=== PATIENT | male | born 1940 | race Caucasian/White ===

== ENCOUNTER → 2020-06-30 | Outpatient (CLI) | payer MEDICARE | END | disposition home or self-care (01) | LOC: COVID19 11:32 | PROVIDERS: ATTEND Internal Medicine | DX: U07.1 COVID-19 (principal) ==

== ENCOUNTER → 2023-11-16 | Outpatient (CLI) | payer MEDICARE ==
[~2023-11-16] MED LIST: ASPIRIN ADULT L81 M2 PO; ATORVASTATIN CA40 M1 PO; LOSARTAN POTASS25 M1 PO; METOPROLOL SUCC25 M2 PO; MUCINEX ER600 MG PO; PREDNISONE10 MG PO; TAMIFLU 75MG CA75 MG PO; ZITHROMAX250 MG PO
== END | disposition home or self-care (01) ==
LOC: RESCLI 15:39
PROVIDERS: ATTEND Internal Medicine
DX: E03.9 Hypothyroidism, unspecified (principal); I48.91 Unspecified atrial fibrillation; J44.9 Chronic obstructive pulmonary disease, unspecified; Z98.890 Other specified postprocedural states; Z88.8 Allergy status to other drugs, medicaments and biological substances; Z79.01 Long term (current) use of anticoagulants; Z79.899 Other long term (current) drug therapy

== ENCOUNTER 2024-02-26 09:26 | Inpatient (IN) | payer MEDICARE ==
[~2024-02-26] VITALS: Ht 180.3 cm; Wt 86.2 kg
[2024-02-26] VITALS (11 sets, daily range): BP systolic 104–136; BP diastolic 69–90
[~2024-02-26 09:26] MED LIST changes: +DILTIAZEM 24HR180 MG PO; +ELIQUIS5 M1 PO; +FUROSEMIDE20 M1 PO; +HYDROCODONE-AC1 EAC1 PO; +LEVOTHYROXINE50 MCG PO; +TRELEGY ELLIPT1 EAC1 INH; +VITAMIN D350 MCG PO
[2024-02-26] MEDS ORDERED: MORPHINE Sulfate 2 MG/ML SYR IV ONE (10:00)
[2024-02-26] MEDS ORDERED: Ondansetron Hydrochloride 4 MG/2 ML VIAL IV ONE (10:00)
[2024-02-26 10:24] LABS: BASO % 0.4 % (0.0-1.0); EOS % 0.4 % (1.0-4.0); HEMATOCRIT 36.4 % (42.0-52.0); LYMPH # 0.9 10*3/uL (1.3-4.4); LYMPH % 11.6 % (27.0-41.0); MEAN CELL VOLUME 93.6 fl (80.0-94.0); MEAN CORPUSCULAR HGB 29.6 pg (27.0-31.0); MEAN CORPUSCULAR HGB CONC 31.6 g/dl (33.0-37.0); MONO # 0.5 10*3/uL (0.1-1.0); MONO % 6.8 % (3.0-9.0); NEUT # 6.3 10*3/uL (2.3-7.9); NEUT % 80.4 % (47.0-73.0); PLATELET COUNT AUTOMATED 279 10*3/uL (130-400); RED BLOOD COUNT 3.89 10*6/uL (4.50-5.90); RED CELL DISTRI WIDTH 16.5 % (0-14.5); WHITE BLOOD COUNT 7.8 10*3/uL (4.8-10.8)
[2024-02-26 10:35] LABS: ACT PARTIAL THROMBO TIME 34.2 SECONDS (20.0-32.1)
[2024-02-26] MEDS ORDERED: Metoprolol Tartrate 5 MG/5 ML VIAL IV ONE (10:35)
[2024-02-26 10:39] LABS: POTASSIUM 3.9 mmol/L (3.4-5.1)
[2024-02-26] MEDS ORDERED: Magnesium Hydroxide 30 ML UDC PO PRN (13:15)
[2024-02-26] MEDS ORDERED: MORPHINE Sulfate 2 MG/ML SYR IV PRN (13:15)
[2024-02-26] MEDS ORDERED: BISACODYL 5 MG TAB PO PRN (13:15)
[2024-02-26] MEDS ORDERED: Lactated Ringer's Solution 1,000 ML IV ONE ×3 (13:25→14:45)
[2024-02-26] MEDS ORDERED: ACETAMINOPHEN 100 ML IV ONE (13:34)
[2024-02-26] MEDS ORDERED: Ropivacaine Hydrochloride 5 MG/ML 20 ML AMP IJ ONE (13:34)
[2024-02-26] MEDS ORDERED: TRANEXAMIC ACID IN NACL,ISO-OS 100 ML IV ONE ×2 (13:38→14:15)
[2024-02-26] MEDS ORDERED: ceFAZolin sodium/sodium chlor 20 ML IV ONE ×2 (13:39→14:15)
[2024-02-26] MEDS ORDERED: Bupivacaine Hydrochloride/Ep2 30 ML VIAL ONE (14:45)
[2024-02-26] MEDS ORDERED: Dexamethasone Sodium Phospha 4 MG/ML VIAL IV ONE (17:11)
[2024-02-26] MEDS ORDERED: SEVOFLURANE 250 ML BOT INH ONE (17:11)
[2024-02-26] MEDS ORDERED: PROPOFOL 200 MG/20 ML VIAL IV ONE (17:11)
[2024-02-26] MEDS ORDERED: SUGAMMADEX SODIUM 200 MG/2 ML VIAL IV ONE (17:11)
[2024-02-26] MEDS ORDERED: fentaNYL CITRATE 100 MCG/2 ML VIAL IV ONE (17:11)
[2024-02-26] MEDS ORDERED: Phenylephrine Hydrochloride 1 MG/10 ML SYRINGE IV ONE (17:11)
[2024-02-26] MEDS ORDERED: ROCURONIUM BROMIDE 50 MG/5 ML SYRINGE IV ONE (17:11)
[2024-02-26] MEDS ORDERED: Midazolam Hydrochloride 2 MG/2 ML VIAL IV ONE (17:11)
[2024-02-26] MEDS ORDERED: Acetaminophen/Hydrocodone ES 7.5/325 tablet PO ONE (17:17)
[2024-02-26] MEDS ORDERED: Acetaminophen/Hydrocodone ES 7.5/325 tablet PO PRN (18:00)
[2024-02-26] MEDS ORDERED: SODIUM CHLORIDE 0.9% 1,000 ML IV ONE ×2 (18:25→18:44)
[2024-02-26] MEDS ORDERED: ceFAZolin sodium/sodium chlor 10 ML IV SCH (22:00)
[2024-02-27] VITALS: BP 99/61
[2024-02-27 06:10] LABS: HEMATOCRIT 34.6 % (42.0-52.0); MEAN CORPUSCULAR HGB 29.3 pg (27.0-31.0); MEAN CORPUSCULAR HGB CONC 31.2 g/dl (33.0-37.0); MEAN PLATELET VOLUME 9.6 fl (9.6-12.3); PLATELET COUNT AUTOMATED 254 10*3/uL (130-400); RED BLOOD COUNT 3.68 10*6/uL (4.50-5.90); RED CELL DISTRI WIDTH 16.3 % (0-14.5); WHITE BLOOD COUNT 9.6 10*3/uL (4.8-10.8)
[2024-02-27 06:13] LABS: MANUAL DIFF REFLEX YES
[2024-02-27 06:23] LABS: TOTAL PROTEIN 6.3 gm/dL (6.0-8.0)
[2024-02-27 07:00] LABS: OVALOCYTES FEW; POLYCHROMASIA SLIGHT; TARGET CELLS FEW; TOTAL CELLS COUNTED 100 #CELLS
[2024-02-27 07:01] LABS: PLATELET SUFFICIENCY NORMAL (NORMAL)
[2024-02-27 08:00] VITALS: BP 118/75
[2024-02-27] MEDS ORDERED: DILTIAZEM CD 180 MG CAP PO SCH (10:00)
[2024-02-27] MEDS ORDERED: Cholecalciferol 2,000 UNIT TABLET (50 MCG) PO SCH (10:00)
[2024-02-27 12:00] VITALS: BP 93/58
[2024-02-27 16:00] VITALS: BP 98/54
[2024-02-27 20:00] VITALS: BP 111/59
[2024-02-27] MEDS ORDERED: APIXABAN 5 MG TAB PO SCH (22:00)
[2024-02-27 23:00] VITALS: BP 113/66
[2024-02-28] MEDS ORDERED: Levothyroxine Sodium 50 MCG TAB PO SCH (06:00)
[2024-02-28 06:33] LABS: LYMPH # 0.6 10*3/uL (1.3-4.4); LYMPH % 4.7 % (27.0-41.0); MEAN CELL VOLUME 92.2 fl (80.0-94.0); MEAN CORPUSCULAR HGB 29.7 pg (27.0-31.0); MEAN CORPUSCULAR HGB CONC 32.2 g/dl (33.0-37.0); MEAN PLATELET VOLUME 9.2 fl (9.6-12.3); MONO # 1.1 10*3/uL (0.1-1.0); MONO % 9.3 % (3.0-9.0); NEUT % 85.4 % (47.0-73.0); PLATELET COUNT AUTOMATED 233 10*3/uL (130-400); RED BLOOD COUNT 3.47 10*6/uL (4.50-5.90); RED CELL DISTRI WIDTH 16.6 % (0-14.5); WHITE BLOOD COUNT 11.7 10*3/uL (4.8-10.8)
[2024-02-28 08:00] VITALS: BP 106/85
[2024-02-28] MEDS ORDERED: SODIUM CHLORIDE 0.9% 1,000 ML IV ONE (10:25)
[2024-02-28 12:00] VITALS: BP 95/58
[2024-02-28 16:00] VITALS: BP 102/72
[2024-02-28 20:00] VITALS: BP 107/72
[2024-02-29] VITALS: BP 120/60
[2024-02-29 04:31] LABS: BASO % 0.1 % (0.0-1.0); HEMATOCRIT 32.3 % (42.0-52.0); LYMPH # 0.8 10*3/uL (1.3-4.4); LYMPH % 9.5 % (27.0-41.0); MEAN CELL VOLUME 93.6 fl (80.0-94.0); MEAN CORPUSCULAR HGB 30.4 pg (27.0-31.0); MEAN CORPUSCULAR HGB CONC 32.5 g/dl (33.0-37.0); MEAN PLATELET VOLUME 9.1 fl (9.6-12.3); MONO # 0.9 10*3/uL (0.1-1.0); MONO % 10.8 % (3.0-9.0); NEUT # 6.6 10*3/uL (2.3-7.9); NEUT % 78.8 % (47.0-73.0); PLATELET COUNT AUTOMATED 209 10*3/uL (130-400); RED BLOOD COUNT 3.45 10*6/uL (4.50-5.90); RED CELL DISTRI WIDTH 16.8 % (0-14.5); WHITE BLOOD COUNT 8.4 10*3/uL (4.8-10.8)
[2024-02-29 08:00] VITALS: BP 120/79
[2024-02-29 12:00] VITALS: BP 112/66
[2024-02-29] MEDS ORDERED: Ondansetron Hydrochloride 4 MG TAB PO PRN (15:50)
[2024-02-29 16:00] VITALS: BP 106/70
[2024-02-29] MEDS ORDERED: Polyethylene Glycol 3350 17 GM PACKET PO SCH (18:00)
[2024-02-29 20:00] VITALS: BP 101/61
[2024-03-01] VITALS: BP 104/65
[2024-03-01 06:45] LABS: BASO % 0.1 % (0.0-1.0); EOS % 0.3 % (1.0-4.0); HEMATOCRIT 31.6 % (42.0-52.0); LYMPH % 13.9 % (27.0-41.0); MEAN CORPUSCULAR HGB 30.1 pg (27.0-31.0); MEAN PLATELET VOLUME 9.6 fl (9.6-12.3); MONO # 0.8 10*3/uL (0.1-1.0); MONO % 11.3 % (3.0-9.0); NEUT # 5.1 10*3/uL (2.3-7.9); NEUT % 74.1 % (47.0-73.0); PLATELET COUNT AUTOMATED 207 10*3/uL (130-400); POTASSIUM 5.1 mmol/L (3.4-5.1); RED BLOOD COUNT 3.36 10*6/uL (4.50-5.90); RED CELL DISTRI WIDTH 16.6 % (0-14.5); WHITE BLOOD COUNT 6.9 10*3/uL (4.8-10.8)
[2024-03-01 08:00] VITALS: BP 113/69
[2024-03-01] MEDS ORDERED: APIXABAN 5 MG TAB PO SCH (10:00)
[2024-03-01] MEDS ORDERED: HYDROCODONE-AC1 EAC2 PO (11:41)
[2024-03-01 12:00] VITALS: BP 108/65
== END 2024-03-01 13:16 | disposition home or self-care (01) | DRG 469 ==
LOC: ED 09:26 → 4E 11:40 → EDHOLD 11:40 → 4E 15:09
PROVIDERS: Emergency Medicine; Orthopaedic Surgery; Student in an Organized Health Care Education/Training Program; ADMIT Student in an Organized Health Care Education/Training Program; ATTEND Student in an Organized Health Care Education/Training Program
PROC: 0SRS0JZ Replacement of Left Hip Joint, Femoral Surface with Synthetic Substitute, Open Approach (ICD-10-PCS; principal; 2024-02-26)
PROC: 3E0T3BZ Introduction of Anesthetic Agent into Peripheral Nerves and Plexi, Percutaneous Approach (ICD-10-PCS; 2024-02-26)
PROC: 0SPB04Z Removal of Internal Fixation Device from Left Hip Joint, Open Approach (ICD-10-PCS; 2024-02-26)
DX: T84.84XA Pain due to internal orthopedic prosthetic devices, implants and grafts, initial encounter (principal); N17.0 Acute kidney failure with tubular necrosis; E87.1 Hypo-osmolality and hyponatremia; I48.91 Unspecified atrial fibrillation; N18.31 Chronic kidney disease, stage 3a; E80.6 Other disorders of bilirubin metabolism; D64.9 Anemia, unspecified; R73.9 Hyperglycemia, unspecified; I12.9 Hypertensive chronic kidney disease with stage 1 through stage 4 chronic kidney disease, or unspecified chronic kidney disease; J44.9 Chronic obstructive pulmonary disease, unspecified; R74.8 Abnormal levels of other serum enzymes; D72.9 Disorder of white blood cells, unspecified; E03.9 Hypothyroidism, unspecified; S72.03 Midcervical fracture of femur; Z88.8 Allergy status to other drugs, medicaments and biological substances; W18.30XS Fall on same level, unspecified, sequela; Z87.891 Personal history of nicotine dependence; Z82.49 Family history of ischemic heart disease and other diseases of the circulatory system; Z79.899 Other long term (current) drug therapy; Y83.8 Other surgical procedures as the cause of abnormal reaction of the patient, or of later complication, without mention of misadventure at the time of the procedure; Y92.89 Other specified places as the place of occurrence of the external cause

== ENCOUNTER 2024-03-14 18:27 | Inpatient (IN) | payer MEDICARE ==
[2024-03-14] VITALS: BP 99/64
[~2024-03-14] VITALS: Ht 175.2 cm; Wt 79.4 kg
[~2024-03-14 18:27] MED LIST changes: +CEPHALEXIN500 M1 PO; +HYDROCODONE-AC1 EAC2 PO; +VIBRAMYCIN100 MG PO
[2024-03-14 18:46] VITALS: BP 106/58
[2024-03-14] MEDS ORDERED: SODIUM CHLORIDE 0.9% 1,000 ML IV ONE (19:15)
[2024-03-14] MEDS ORDERED: Acetaminophen/Oxycodone 5 MG/325 MG TABLET PO ONE (19:20)
[2024-03-14] MEDS ORDERED: IOHEXOL 300 MG/ML 100 ML VIAL IV ONE (19:25)
[2024-03-14] MEDS ORDERED: Piperacillin Sodium/Tazobact 50 ML IV ONE (19:45)
[2024-03-14] MEDS ORDERED: Vancomycin Hydrochloride 250 ML IV ONE (19:45)
[2024-03-14 20:00] VITALS: BP 99/64
[2024-03-14] MEDS ORDERED: MORPHINE Sulfate 2 MG/ML SYR IV PRN (20:30)
[2024-03-14] MEDS ORDERED: ACETAMINOPHEN 325 MG TAB PO PRN (20:30)
[2024-03-14] MEDS ORDERED: Ondansetron Hydrochloride 4 MG/2 ML VIAL IV PRN (20:30)
[2024-03-14] MEDS ORDERED: Acetaminophen/Oxycodone 5 MG/325 MG TABLET PO PRN (20:35)
[2024-03-14 23:32] VITALS: BP 116/76
[2024-03-15] MEDS ORDERED: hydrOXYzine hydrochloride 50 MG/ML VIAL IM ONE (01:35)
[2024-03-15 04:19] VITALS: BP 117/57
[2024-03-15 06:45] VITALS: BP 111/77
[2024-03-15 07:09] LABS: BASO % 0.4 % (0.0-1.0); EOS % 0.5 % (1.0-4.0); HEMATOCRIT 30.7 % (42.0-52.0); LYMPH # 0.7 10*3/uL (1.3-4.4); LYMPH % 13.3 % (27.0-41.0); MEAN CELL VOLUME 93.9 fl (80.0-94.0); MEAN CORPUSCULAR HGB 29.1 pg (27.0-31.0); MEAN CORPUSCULAR HGB CONC 30.9 g/dl (33.0-37.0); MEAN PLATELET VOLUME 8.7 fl (9.6-12.3); MONO # 0.7 10*3/uL (0.1-1.0); NEUT % 73.4 % (47.0-73.0); PLATELET COUNT AUTOMATED 325 10*3/uL (130-400); RED BLOOD COUNT 3.27 10*6/uL (4.50-5.90); RED CELL DISTRI WIDTH 15.3 % (0-14.5); WHITE BLOOD COUNT 5.5 10*3/uL (4.8-10.8)
[2024-03-15 07:29] LABS: POTASSIUM 3.9 mmol/L (3.4-5.1)
[2024-03-15] MEDS ORDERED: ALBUTEROL SULFATE HF INH (09:42)
[2024-03-15] MEDS ORDERED: TRELEGY ELLIPT1 EACH INH (09:45)
[2024-03-15] MEDS ORDERED: VITAMIN D350 MCG PO (09:46)
[2024-03-15] MEDS ORDERED: HYDROCODONE-AC1 EAC2 PO (09:47)
[2024-03-15] MEDS ORDERED: Piperacillin Sodium/Tazobact 2.25 GM in SODIUM CHLORIDE 0.9% 50 ML IV SCH (10:00)
[2024-03-15] MEDS ORDERED: FUROSEMIDE 40 MG/4 ML VIAL IV SCH (10:00)
[2024-03-15 10:51] VITALS: BP 102/60
[2024-03-15] MEDS ORDERED: Levothyroxine Sodium 50 MCG TAB PO SCH (11:33)
[2024-03-15] MEDS ORDERED: DILTIAZEM CD 180 MG CAP PO SCH (11:34)
[2024-03-15] MEDS ORDERED: Cholecalciferol 2,000 UNIT TABLET (50 MCG) PO SCH (11:34)
[2024-03-15] MEDS ORDERED: Albuterol Sulfate 2.5 MG/3 ML VIAL NEB SCH (11:40)
[2024-03-15] MEDS ORDERED: Lidocaine Hydrochloride 5 ML AMP ONE (11:52)
[2024-03-15] MEDS ORDERED: SODIUM BICARBONATE 4.2% 5 ML VIAL ONE (11:52)
[2024-03-15] MEDS ORDERED: Acetaminophen/Oxycodone 5 MG/325 MG TABLET PO PRN (15:55)
[2024-03-15 16:00] VITALS: BP 99/64
[2024-03-15] MEDS ORDERED: Vancomycin Hydrochloride 1,000 MG in SODIUM CHLORIDE 0.9% 250 ML IV SCH (18:00)
[2024-03-15 18:23] LABS: BF LYMPHOCYTES 2 %; BF MACROPHAGES 6 %; BF NEUTROPHILS 92 %
[2024-03-15 20:48] VITALS: BP 105/62
[2024-03-15 21:09] VITALS: BP 92/64
[2024-03-16] VITALS: BP 92/62
[2024-03-16 06:18] LABS: BASO % 0.1 % (0.0-1.0); EOS # 0.1 10*3/uL (0.0-0.4); EOS % 0.8 % (1.0-4.0); HEMATOCRIT 32.6 % (42.0-52.0); LYMPH # 1.2 10*3/uL (1.3-4.4); LYMPH % 15.9 % (27.0-41.0); MEAN CELL VOLUME 92.4 fl (80.0-94.0); MEAN CORPUSCULAR HGB 28.9 pg (27.0-31.0); MEAN CORPUSCULAR HGB CONC 31.3 g/dl (33.0-37.0); MEAN PLATELET VOLUME 9.3 fl (9.6-12.3); MONO # 1.1 10*3/uL (0.1-1.0); NEUT # 5.2 10*3/uL (2.3-7.9); NEUT % 68.8 % (47.0-73.0); PLATELET COUNT AUTOMATED 415 10*3/uL (130-400); RED BLOOD COUNT 3.53 10*6/uL (4.50-5.90); RED CELL DISTRI WIDTH 15.4 % (0-14.5); WHITE BLOOD COUNT 7.5 10*3/uL (4.8-10.8)
[2024-03-16 06:39] LABS: POTASSIUM 3.9 mmol/L (3.4-5.1)
[2024-03-16 08:00] VITALS: BP 93/64
[2024-03-16 09:45] VITALS: BP 96/60
[2024-03-16] MEDS ORDERED: Polyethylene Glycol 3350 17 GM PACKET PO SCH (10:00)
[2024-03-16] MEDS ORDERED: TRELEGY INH SCH (10:00)
[2024-03-16] MEDS ORDERED: ALBUTEROL 8 GM INHALER INH SCH (10:00)
[2024-03-16 11:20] VITALS: BP 109/89
[2024-03-16 15:14] VITALS: BP 93/58
[2024-03-16 20:00] VITALS: BP 100/58
[2024-03-17] VITALS: BP 96/66
[2024-03-17 06:04] LABS: BASO % 0.3 % (0.0-1.0); EOS % 0.7 % (1.0-4.0); HEMATOCRIT 28.1 % (42.0-52.0); LYMPH # 0.8 10*3/uL (1.3-4.4); LYMPH % 14.6 % (27.0-41.0); MEAN CORPUSCULAR HGB 28.8 pg (27.0-31.0); MEAN PLATELET VOLUME 8.8 fl (9.6-12.3); MONO # 0.7 10*3/uL (0.1-1.0); MONO % 12.4 % (3.0-9.0); NEUT # 4.1 10*3/uL (2.3-7.9); NEUT % 71.7 % (47.0-73.0); PLATELET COUNT AUTOMATED 296 10*3/uL (130-400); RED BLOOD COUNT 3.02 10*6/uL (4.50-5.90); RED CELL DISTRI WIDTH 15.2 % (0-14.5); WHITE BLOOD COUNT 5.7 10*3/uL (4.8-10.8)
[2024-03-17 07:16] LABS: POTASSIUM 4.3 mmol/L (3.4-5.1)
[2024-03-17] MEDS ORDERED: SODIUM CHLORIDE 0.9% 500 ML IV ONE (07:45)
[2024-03-17 08:00] VITALS: BP 94/59
[2024-03-17 12:00] VITALS: BP 92/52
[2024-03-17 16:00] VITALS: BP 104/70
[2024-03-17 20:00] VITALS: BP 95/62
[2024-03-17 23:09] VITALS: BP 90/63
[2024-03-17] MEDS ORDERED: DILTIAZEM HYDROCHLORIDE 30 MG PO ONE (23:15)
[2024-03-18 00:17] VITALS: BP 125/96
[2024-03-18 08:00] VITALS: BP 106/67
[2024-03-18] MEDS ORDERED: APIXABAN 5 MG TAB PO SCH (10:00)
== END 2024-03-18 11:50 | disposition home or self-care (01) | DRG 602 ==
LOC: ED 18:27 → EDHOLD 20:07 → 4E 03-15 20:07
PROVIDERS: Internal Medicine; Student in an Organized Health Care Education/Training Program; Surgery; ADMIT Internal Medicine; ATTEND Internal Medicine
PROC: 0S9B30Z Drainage of Left Hip Joint with Drainage Device, Percutaneous Approach (ICD-10-PCS; principal; 2024-03-15)
DX: L03.116 Cellulitis of left lower limb (principal); N17.0 Acute kidney failure with tubular necrosis; E87.1 Hypo-osmolality and hyponatremia; N18.32 Chronic kidney disease, stage 3b; J44.9 Chronic obstructive pulmonary disease, unspecified; I48.91 Unspecified atrial fibrillation; I95.9 Hypotension, unspecified; I12.9 Hypertensive chronic kidney disease with stage 1 through stage 4 chronic kidney disease, or unspecified chronic kidney disease; E03.9 Hypothyroidism, unspecified; D64.9 Anemia, unspecified; I25.2 Old myocardial infarction; S72.03 Midcervical fracture of femur; Z88.8 Allergy status to other drugs, medicaments and biological substances; Z87.891 Personal history of nicotine dependence; Z82.49 Family history of ischemic heart disease and other diseases of the circulatory system; X58.XXXS Exposure to other specified factors, sequela

== ENCOUNTER → 2024-03-25 | Day surgery (SDC) | payer MEDICARE ==
[~2024-03-25] VITALS: Ht 177.8 cm; Wt 84.8 kg
[2024-03-25] VITALS (7 sets, daily range): BP systolic 119–136; BP diastolic 64–92
[~2024-03-25] MED LIST changes: +ACETAMINOPHEN 100 ML IV ONE; +ALBUTEROL SULFATE HF INH; +Bupivacaine Hydrochloride/Ep 10 ML VIAL ONE; +HYDROmorphONE Hydrochloride 0.5 MG/0.5 ML SYRINGE IV PRN; +HYDROmorphONE Hydrochloride 0.5 MG/0.5 ML SYRINGE ONE; +Ketamine Hydrochloride 500 MG/10 ML VIAL IV ONE; +Lactated Ringer's Solution 1,000 ML IV ONE; +Lactated Ringer's Solution 500 ML IV ONE; +Lidocaine Hydrochloride 2% 5 ML SDV IV ONE; +PROPOFOL 200 MG/20 ML VIAL IV ONE; +ROCURONIUM BROMIDE 50 MG/5 ML SYRINGE IV ONE; +Ropivacaine Hydrochloride 5 MG/ML 20 ML AMP IJ ONE; +SEVOFLURANE 250 ML BOT INH ONE; +SUGAMMADEX SODIUM 200 MG/2 ML VIAL IV ONE; +TRELEGY ELLIPT1 EACH INH; +ceFAZolin sodium/sodium chlor 20 ML IV ONE; +fentaNYL CITRATE 100 MCG/2 ML VIAL IV ONE
[2024-03-25 13:48] LABS: BASO % 0.3 % (0.0-1.0); EOS % 0.2 % (1.0-4.0); HEMATOCRIT 30.8 % (42.0-52.0); LYMPH # 0.8 10*3/uL (1.3-4.4); LYMPH % 12.2 % (27.0-41.0); MEAN CELL VOLUME 89.3 fl (80.0-94.0); MEAN CORPUSCULAR HGB 28.1 pg (27.0-31.0); MEAN CORPUSCULAR HGB CONC 31.5 g/dl (33.0-37.0); MEAN PLATELET VOLUME 8.6 fl (9.6-12.3); MONO # 0.7 10*3/uL (0.1-1.0); MONO % 11.1 % (3.0-9.0); NEUT # 5.1 10*3/uL (2.3-7.9); NEUT % 75.7 % (47.0-73.0); PLATELET COUNT AUTOMATED 325 10*3/uL (130-400); RED BLOOD COUNT 3.45 10*6/uL (4.50-5.90); RED CELL DISTRI WIDTH 15.3 % (0-14.5); WHITE BLOOD COUNT 6.7 10*3/uL (4.8-10.8)
[2024-03-25 14:02] LABS: ACT PARTIAL THROMBO TIME 35.9 SECONDS (20.0-32.1)
[2024-03-25 14:16] LABS: POTASSIUM 4.6 mmol/L (3.4-5.1)
== END | disposition home or self-care (01) ==
LOC: SDC 13:14
PROVIDERS: Anesthesiology; ATTEND Orthopaedic Surgery
DX: L76.82 Other postprocedural complications of skin and subcutaneous tissue (principal); M79.89 Other specified soft tissue disorders; I96 Gangrene, not elsewhere classified; I11.0 Hypertensive heart disease with heart failure; I50.9 Heart failure, unspecified; J44.9 Chronic obstructive pulmonary disease, unspecified; I48.91 Unspecified atrial fibrillation; E03.9 Hypothyroidism, unspecified; Z87.891 Personal history of nicotine dependence; Z90.89 Acquired absence of other organs; Z98.890 Other specified postprocedural states; Z91.040 Latex allergy status; Z91.041 Radiographic dye allergy status; Z79.899 Other long term (current) drug therapy

== ENCOUNTER → 2024-05-16 | Outpatient (CLI) | payer MEDICARE ==
[~2024-05-16] MED LIST changes: -ACETAMINOPHEN 100 ML IV ONE; -Bupivacaine Hydrochloride/Ep 10 ML VIAL ONE; -HYDROmorphONE Hydrochloride 0.5 MG/0.5 ML SYRINGE IV PRN; -HYDROmorphONE Hydrochloride 0.5 MG/0.5 ML SYRINGE ONE; -Ketamine Hydrochloride 500 MG/10 ML VIAL IV ONE; -Lactated Ringer's Solution 1,000 ML IV ONE; -Lactated Ringer's Solution 500 ML IV ONE; -Lidocaine Hydrochloride 2% 5 ML SDV IV ONE; -PROPOFOL 200 MG/20 ML VIAL IV ONE; -ROCURONIUM BROMIDE 50 MG/5 ML SYRINGE IV ONE; -Ropivacaine Hydrochloride 5 MG/ML 20 ML AMP IJ ONE; -SEVOFLURANE 250 ML BOT INH ONE; -SUGAMMADEX SODIUM 200 MG/2 ML VIAL IV ONE; -ceFAZolin sodium/sodium chlor 20 ML IV ONE; -fentaNYL CITRATE 100 MCG/2 ML VIAL IV ONE
== END | disposition home or self-care (01) ==
LOC: ORTHO 01:38
PROVIDERS: ATTEND Orthopaedic Surgery
DX: T81.9XXA Unspecified complication of procedure, initial encounter (principal); S72.03 Midcervical fracture of femur; X58.XXXS Exposure to other specified factors, sequela

== ENCOUNTER → 2024-06-13 | Outpatient (CLI) | payer MEDICARE | END | disposition home or self-care (01) | LOC: US 09:54 | PROVIDERS: ATTEND Orthopaedic Surgery | DX: T14.8XXA Other injury of unspecified body region, initial encounter (principal); X58.XXXA Exposure to other specified factors, initial encounter ==

== ENCOUNTER → 2024-06-16 | Outpatient (CLI) | payer MEDICARE ==
[~2024-06-16] MED LIST changes: +BACTRIM 400-801 EACH PO; +CARDIZEM CD120 M2 PO
[2024-06-16 10:16] LABS: ACT PARTIAL THROMBO TIME 35.7 SECONDS (20.0-32.1)
== END | disposition home or self-care (01) ==
LOC: SDC 02:16 → EDSTATUS 11:00
PROVIDERS: Radiology Diagnostic Radiology; ATTEND Orthopaedic Surgery
DX: T81.89XA Other complications of procedures, not elsewhere classified, initial encounter (principal); Y83.8 Other surgical procedures as the cause of abnormal reaction of the patient, or of later complication, without mention of misadventure at the time of the procedure; Y92.89 Other specified places as the place of occurrence of the external cause

== ENCOUNTER → 2024-09-21 | Outpatient (CLI) | payer MEDICARE | END | disposition home or self-care (01) | LOC: ORTHO 03:42 | PROVIDERS: ATTEND Orthopaedic Surgery | DX: S72.035D Nondisplaced midcervical fracture of left femur, subsequent encounter for closed fracture with routine healing (principal); Z96.642 Presence of left artificial hip joint; X58.XXXD Exposure to other specified factors, subsequent encounter ==